=== PATIENT | male | born 1960 | race Caucasian/White ===

== ENCOUNTER 2023-02-15 15:42 | Emergency (ER) | payer OTHER, SELFPAY ==
--- NOTE | 2023-02-15 15:49 | ED.MALEGU ---
HPI - Male Genitourinary General Chief complaint: Urogenital-Male Stated complaint: Urinary Problem Time Seen by Provider: 02/15/23 15:49 Source: patient and RN notes reviewed History of Present Illness HPI Narrative: Patient is a 62-year-old male who presents to urgent care with complaints of the burning after urination, frequency and urgency. Patient to tele visit today and they advised him to take azo [id number] and drink cranberry juice and increase water intake. Patient states it the bladder spasm seems to be more frequent. Denies any back pain, abdominal pain, nausea, vomiting or fever. Patient states that it started approximately 2 nights ago and was worse last night. Denies any history of frequent UTIs. No other acute complaints. No acute distress noted. Patient aware of the plan of care. Some parts of this dictation were generated by voice recognition software and may contain typographical and/or grammatical inaccuracies. Related Data Home Medications Medication Instructions Recorded Confirmed aspirin 81 mg chewable tablet 81 mg PO DIRECTED 02/15/23 02/15/23 carbamazepine 200 mg tablet 200 mg PO DIRECTED 02/15/23 02/15/23 clopidogrel 75 mg tablet 75 mg PO DIRECTED 02/15/23 02/15/23 desvenlafaxine succinate 50 mg 50 mg PO DIRECTED 02/15/23 02/15/23 tablet,extended release 24 hr ezetimibe 10 mg tablet 10 mg PO DIRECTED 02/15/23 02/15/23 furosemide 40 mg tablet 40 mg PO DIRECTED 02/15/23 02/15/23 metoprolol succinate 100 mg 100 mg PO DIRECTED 02/15/23 02/15/23 tablet,extended release 24 hr tamsulosin 0.4 mg capsule 0.4 mg PO DIRECTED 02/15/23 02/15/23 Allergies Allergy/AdvReac Type Severity Reaction Status Date / Time duloxetine Allergy Unknown breathing Verified 02/15/23 16:09 trouble morphine AdvReac Mild Vomiting Verified 02/15/23 16:09 Review of Systems Review of Systems: CONSTITUTIONAL: Denies fever, chills, or sweats. EYES: Denies visual changes, redness, or discharge. ENT: Denies rhinorrhea, congestion, sore throat, or otalgia. CARDIOVASCULAR: Denies chest pain, palpitations, or edema. RESPIRATORY: Denies cough or dyspnea. GASTROINTESTINAL: Denies abdominal pain, nausea, vomiting, or diarrhea. GENITOURINARY: Reports of dysuria, urinary frequency and urgency SKIN: Denies rash or itching. MUSCULOSKELETAL: Denies back pain, joint pain, or myalgia. NEUROLOGIC: Denies headache, numbness, or weakness. All other systems reviewed are negative, except as documented in HPI. [facility] Family History Family History (Updated 12/10/16 @ 09:49 by DOCTOR UNKNOWN) Grandparent Family history of infectious disease Family history of malignant neoplasm Family history of malignant neoplasm of breast Social History Social History Smoking status: Never smoker Alcohol intake: never Comments At the time of my signature, I reviewed and agree with the nursing past medical, surgical, social, and family history. There is no relevant family history pertinent to the patient complaint. Exam Narrative: GENERAL: This is a well-nourished, well-developed patient, in no apparent distress. HEAD: normocephalic, atraumatic. EYES: PERRL. Sclera clear/white. Vision is grossly intact. EARS: External ears normal NOSE: External nose normal with no obvious nasal discharge, nares without redness, no rhinorrhea. THROAT: Mucous membranes moist NECK: Neck supple RESPIRATORY: Clear to auscultation. Breath sounds equal bilaterally. No wheezes, rales, or rhonchi. GASTROINTESTINAL: Abdomen soft, non-tender, nondistended. Bowel sounds are active. No guarding. SKIN: warm, intact with no suspicious lesions or rash, good texture and turgor. NEURO: awake, alert, and oriented to person, place and time. There were no obvious focal neurologic abnormalities. EXTREMITIES: No clubbing, cyanosis, or edema. BACK: Negative bilateral CVA tenderness Course Course Level of Care: Express Care Visit Vit
[2023-02-15 15:52] VITALS: BP 139/89; PULSE 59; RESP 20; TEMP 36.9; O2SAT 96
== END 2023-02-15 16:23 | disposition home or self-care (01) ==
PROVIDERS: Emergency Provider Nurse Practitioner Family; PCP Internal Medicine Geriatric Medicine
DX: N39.0 Urinary tract infection, site not specified (principal); Z95.5 Presence of coronary angioplasty implant and graft
CPT/HCPCS: 81003; 87086; 99213; G0463